=== PATIENT | female | born 1995 | race Caucasian/White ===

== ENCOUNTER 2017-08-31 00:45 | Emergency (ER) | payer SELFPAY ==
[~2017-08-31] VITALS: Ht 154.9 cm; Wt 39.5 kg
--- NOTE | 2017-08-31 01:07 | NUR ---
DR BEN BARRERA MD AT BEDSIDE FOR MSE.
[2017-08-31 01:18] LABS: *URINE HCG, QUAL NEGATIVE (NEGATIVE)
--- NOTE | 2017-08-31 01:24 | NUR ---
RADIOLOGY CALLED REGARDING NEGATIVE HCG RESULT, PENDING XRAY AND CT.
--- NOTE | 2017-08-31 01:30 | NUR ---
PT TAKEN TO RADIOLOGY FOR CT VIA GURNEY. NO DISTRESS NOTED.
--- NOTE | 2017-08-31 01:58 | NUR ---
PT BACK IN ROOM FROM RADIOLOGY. NO ACUTE EVENTS.
--- NOTE | 2017-08-31 03:07 | NUR ---
Patient discharged to home in stable conditon. Written and verbal after care instructions given. Patient verbalizes understanding of instructions. Pt ambulated from ER w/ steady gait, accompanied by friend and boyfriend. Pt denies CATHERINE, dizziness, N/V. No distress noted. Pt took all personal belongings.
[2017-08-31 03:10] VITALS: BP 112/64
== END 2017-08-31 03:12 | disposition home or self-care (01) ==
LOC: ER 00:50
DX: S06.0X0A Concussion without loss of consciousness, initial encounter (principal); S50.01XA Contusion of right elbow, initial encounter; S80.01XA Contusion of right knee, initial encounter; W18.30XA Fall on same level, unspecified, initial encounter; Y93.89 Activity, other specified; Y92.89 Other specified places as the place of occurrence of the external cause; Y99.8 Other external cause status
CPT/HCPCS: 70450; 73080; 84703; A4663